=== PATIENT | female | born 1940 | race Caucasian/White ===

== ENCOUNTER → 2016-05-24 | Outpatient (CLI) | payer MEDICARE, OTHER | LOC: LAB 08:35 | PROVIDERS: ATTEND Internal Medicine | DX: N39.0 Urinary tract infection, site not specified (principal) | CPT/HCPCS: 87088 ==

== ENCOUNTER → 2017-01-17 | Outpatient (CLI) | payer MEDICARE, OTHER | LOC: CARD 09:57 | PROVIDERS: ATTEND Internal Medicine | DX: I25.10 Atherosclerotic heart disease of native coronary artery without angina pectoris (principal); R06.09 Other forms of dyspnea; R60.9 Edema, unspecified | CPT/HCPCS: 93306 ==

== ENCOUNTER → 2019-08-12 | Outpatient (CLI) | payer MEDICARE ==
[~2019-08-12] VITALS: Ht 160 cm; Wt 70.0 kg
[~2019-08-12] MED LIST: CATHETER FLUSH 10 ML SYR IV PRN; REGADENOSON 0.4 MG/5 ML SYR (LEXISCAN) IV ONE
[2019-08-12 08:55] VITALS: BP 157/75
[2019-08-12 09:02] VITALS: BP 148/83
--- NOTE | 2019-08-12 15:01 | Cardiology Stress Test Report ---
Stress Test Report Type of NM Stress Test: Test Type: LEXISCAN 0.4MG/5ML Date of Procedure/Referring: Date of Procedure: Aug 12, 2019 PCP Tristian Kong MD Admitting Physician Jovan Francisco MD Indications: CAD, shortness of breath. Baseline Heart Rate: 71 Baseline Blood Pressure: Blood Pressure Systolic: 148 Blood Pressure Diastolic: 83 Baseline EKG: Baseline EKG: sinus rhythm Summary & Conclusion: Summary: The patient was brought to the stress lab after informed consent was taken. Stress test was performed according to the Lexiscan protocol. 0.4 mg of IV Lexiscan was given. Low-grade exercise was performed. Baseline EKG showed sinus rhythm at 71 BPM, blood pressure 157/75 mmHg. Maximum heart rate of 90 BPM and blood pressure 141/67 mmHg. Patient did not have any chest pain, arrhythmias or ST segment changes during the stress test. 10.03 mCi of Myoview were given for rest imaging and 32.8 mCi of Myoview given for stress imaging. Transient ischemic dilatation score 0.93, EF 76 percent. Normal wall motion. Normal myocardial perfusion imaging during rest and stress. Conclusion: Pharmacological stress test was negative for ischemia. Normal LV function with no wall motion abnormalities. Normal myocardial perfusion imaging during rest and stress. Tristian KONG MD Aug 12, 2019 15:01
== END ==
LOC: CARD 07:17
PROVIDERS: ATTEND Internal Medicine Interventional Cardiology
DX: I25.10 Atherosclerotic heart disease of native coronary artery without angina pectoris (principal); E78.5 Hyperlipidemia, unspecified; I11.9 Hypertensive heart disease without heart failure
CPT/HCPCS: 78452; 93017; A9502

== ENCOUNTER → 2019-09-02 | Outpatient (CLI) | payer MEDICARE, OTHER ==
--- NOTE | 2019-09-02 11:24 | Diagnostic Imaging Report ---
INDICATION: Neck stiffness. TIME OF EXAM: 10:59 a.m. FINDINGS: Three views of the cervical spine were obtained. There is straightening and slight reversal of the normal cervical lordotic curvature. Minimal retrolisthesis of C5 on C6 is noted. There is severe degenerative disc disease at the C5-C6 level with disc space narrowing, marginal spurring and endplate sclerosis. Moderate degenerative disc disease at C4-C5 levels also noted. Multilevel facet arthropathy is noted. The prevertebral tissues are normal. Odontoid is intact. No fractures are identified. IMPRESSION: Cervical spondylosis and listhesis. No acute bony abnormality is detected. Dictated by: Dictated on workstation # [id number]
--- NOTE | 2019-09-02 11:27 | Diagnostic Imaging Report ---
INDICATION: Low back pain. TIME OF EXAM: 11:06 a.m. FINDINGS: Three views of the lumbar spine were obtained. Curvature is normal. There is anterolisthesis of L4 on L5. There is significant L4-L5 degenerative disc disease with disc space narrowing and endplate sclerosis. Vertebral body heights are maintained. No acute compression fracture is detected. The remaining disc spaces are fairly well-maintained. IMPRESSION: L4-L5 spondylosis and spondylolisthesis. No acute bony abnormality is detected. Dictated by: Dictated on workstation # [id number]
== END ==
LOC: RAD 10:40
PROVIDERS: ATTEND Nurse Practitioner Family
DX: M47.812 Spondylosis without myelopathy or radiculopathy, cervical region (principal); M47.816 Spondylosis without myelopathy or radiculopathy, lumbar region; M43.12 Spondylolisthesis, cervical region; M43.16 Spondylolisthesis, lumbar region
CPT/HCPCS: 72040; 72100

== ENCOUNTER 2019-09-09 09:30 | Outpatient (RCR) | payer MEDICARE | END 2019-10-19 | disposition home or self-care (01) | PROVIDERS: ATTEND Internal Medicine | DX: M47.812 Spondylosis without myelopathy or radiculopathy, cervical region (principal); R51 Headache ==

== ENCOUNTER 2020-02-22 06:09 | Outpatient (RCR) | payer MEDICARE ==
[~2020-02-22] VITALS: Ht 157.5 cm; Wt 68.5 kg
[2020-02-23] MEDS ORDERED: ESTR0.5T PO (14:16)
[2020-02-23] MEDS ORDERED: LUTE1CAP7 PO (14:33)
[2020-02-23] MEDS ORDERED: OMEG-77 PO (14:33)
[2020-02-23] MEDS ORDERED: GARL10002 PO (14:33)
[2020-02-23] MEDS ORDERED: VITA400C60 PO (14:33)
[2020-02-23] MEDS ORDERED: NAPR-1070 PO (14:33)
[2020-02-23] MEDS ORDERED: OMEP-254 PO (14:33)
[2020-02-23] MEDS ORDERED: UBID1CAP4 PO (14:33)
[2020-02-23] MEDS ORDERED: ACET-2267 PO (14:33)
[2020-02-23] MEDS ORDERED: VITA0.4T7 PO (14:33)
[2020-02-23] MEDS ORDERED: VITA-252 PO (14:33)
[2020-02-23] MEDS ORDERED: GINK120C PO (14:33)
[2020-02-23] MEDS ORDERED: NF-VITD400 PO (14:33)
[2020-02-23] MEDS ORDERED: LORA10TA7 PO (14:33)
[2020-02-23] MEDS ORDERED: GLUC100016 PO (14:33)
== END 2020-02-23 14:39 | disposition home or self-care (01) ==
LOC: PREOP 06:09
PROVIDERS: ATTEND Internal Medicine
DX: Z01.812 Encounter for preprocedural laboratory examination (principal); R13.10 Dysphagia, unspecified; Z20.828 Contact with and (suspected) exposure to other viral communicable diseases
CPT/HCPCS: 87635

== ENCOUNTER 2020-03-15 05:28 | Outpatient (RCR) | payer MEDICARE ==
[~2020-03-15 05:28] MED LIST changes: +ACET-2267 PO; -CATHETER FLUSH 10 ML SYR IV PRN; +ESTR0.5T PO; +GARL10002 PO; +GINK120C PO; +GLUC100016 PO; +LORA10TA7 PO; +LUTE1CAP7 PO; +NAPR-1070 PO; +NF-VITD400 PO; +OMEG-77 PO; +OMEP-254 PO; -REGADENOSON 0.4 MG/5 ML SYR (LEXISCAN) IV ONE; +UBID1CAP4 PO; +VITA-252 PO; +VITA0.4T7 PO; +VITA400C60 PO
== END 2020-03-15 10:04 | disposition home or self-care (01) ==
LOC: PREOP 05:28
PROVIDERS: ATTEND Internal Medicine
DX: Z01.812 Encounter for preprocedural laboratory examination (principal); R13.10 Dysphagia, unspecified; Z20.822 Contact with and (suspected) exposure to COVID-19
CPT/HCPCS: 87635

== ENCOUNTER 2020-03-17 07:00 | Day surgery (SDC) | payer MEDICARE ==
--- NOTE | 2020-02-23 10:13 | HISTORY AND PHYSICAL ---
DATE OF SERVICE: EGD HISTORY AND PHYSICAL DATE OF ADMISSION: HISTORY OF PRESENT ILLNESS: The patient stick is a 79-year-old white female, who reports roughly a year history of dysphagia to solids. It has gotten worse over the past two months and she had one episode of regurgitation around the , when she was eating bread. She had epigastric discomfort with that and had to regurgitate food, was unable to keep liquids down and after 24 hours, was keeping some solids down. She denies any weight gain, but two weeks ago, she did have an episode in the evening after dinner, where she had left precordial chest pain that radiated into the left arm. She denied any problems with increased shortness of breath, diaphoresis or nausea with the pain. She went to bed and the following morning, was feeling better while she reports dyspnea with exertion that has been stable and no different after her episode of chest pain. She does have a history of coronary artery disease with stent placement for single vessel disease involving the LAD in 2002. She has significant osteoarthritis of the knees. She is not on anything other than some occasional Tylenol. She has a history of reflux and takes 20 mg of omeprazole daily, currently is off of aspirin. She denies weight loss, melena or bright red blood per rectum or abdominal distention. PHYSICAL EXAMINATION: GENERAL: Reveals a white female, who did not appear to be in acute distress. VITAL SIGNS: Blood pressure 130/70, heart rate 70 and regular. O2 saturation is 98% on room air. HEENT: Oral cavity clear, no erythema noted. CHEST: Clear to auscultation. CARDIOVASCULAR: Reveals a regular rate and rhythm without murmur, S3 or S4. ABDOMEN: Soft, supple. Mild epigastric discomfort to palpation is noted without rebound, guarding, mass or organomegaly. EXTREMITIES: Reveal no cyanosis, clubbing or edema. ASSESSMENT AND PLAN: 1. Dysphagia with some intermittent odynophagia and history of reflux. The patient is to continue to avoid aspirin and nonsteroidal medication and will be set up for an EGD evaluation with possible dilatation to follow. 2. Chest discomfort with history of coronary artery disease. No ongoing anginal symptoms. I suspect may be reflux related. However, she was told to discuss this with her sales development director, Dr. Butterfield at their appointment later this week. I will see her back in four weeks for followup. Job ID: [id number] DocumentID: [id number] Dictated Date: 02/23/2020 09:49:04 Chief Passenger Ship Steward/Stewardess Date: 02/23/2020 10:12:37 Dictated By: JOEY WORLEY MD
[~2020-03-17] VITALS: Ht 162.6 cm; Wt 68.5 kg
[2020-03-17] MEDS ORDERED: LACTATED RINGERS 1,000 ML IV STA (07:09)
[2020-03-17] MEDS ORDERED: PROPOFOL INJECTION 50 ML IV ONE (07:11)
[2020-03-17] MEDS ORDERED: LIDOCAINE JELLY 2% 6 ML SYRINGE MM PRN (07:15)
[2020-03-17] MEDS ORDERED: HURRICAINE EXT TUBE (BENZOCAINE) XX PRN (07:15)
[2020-03-17] MEDS ORDERED: LACTATED RINGERS 1,000 ML IV ONE (07:19)
[2020-03-17 07:38] VITALS: BP 149/84
[2020-03-17] MEDS ORDERED: ASPI-1238 PO (07:49)
[2020-03-17] MEDS ORDERED: HURRICAINE EXT TUBE (BENZOCAINE) ONE (07:56)
[2020-03-17] MEDS ORDERED: LIDOCAINE JELLY 2% 6 ML SYRINGE ONE (07:56)
[2020-03-17 08:15] VITALS: BP 135/63
[2020-03-17 08:20] VITALS: BP 114/59
--- NOTE | 2020-03-17 08:21 | Pre-Op Note & Conscious Sedat ---
Pre-Operative Progress Note H&P Reviewed The H&P was reviewed, patient examined and no changes noted. Date H&P Reviewed: Mar 17, 2020 Time H&P Reviewed: 07:45 Conscious Sedation Pre-Proced ASA Score 2 For ASA 3 and 4: Consider anesthesia and medical clearance. Also, for patients with a history of failed moderate sedation consider anesthesia. Airway Lungs Heart ASA score ASA 1: a normal healthy patient ASA 2: a patient with a mild systemic disease (mid diabetes, controlled hypertension, obesity ASA 3: a patient with a severe systemic disease that limits activity (angina, COPD, prior Myocardial infarction) ASA 4: a patient with an incapacitating disease that is a constant threat to life (CHF, renal failure) ASA 5: a moribund patient not expected to survive 24 hrs. (ruptured aneurysm) ASA 6: a declared brain- patient whose organs are being harvested. For emergent operations, add the letter E after the classification Mallampati Classification Grade 2 Sedation Plan Analgesia, Amnesia, Plan communicated to team members, Discussed options with patient/fam, Discussed risks with patient/fam The patient is an appropriate candidate to undergo the planned procedure, sedation, and anesthesia. The patient immediately re-assessed prior to indication. JOEY WORLEY MD Mar 17, 2020 08:20
[2020-03-17 08:25] VITALS: BP 125/64
[2020-03-17 08:45] VITALS: BP 125/64
[2020-03-17 09:21] VITALS: BP 145/68
--- NOTE | 2020-03-17 14:54 | Anesthesia-General Post-Op ---
MAC Patient Condition Mental Status/LOC: Same as Preop Cardiovascular: Satisfactory Nausea/Vomiting: Absent Respiratory: Satisfactory Pain: Controlled Complications: Absent Post Op Complications Complications None Follow Up Care/Instructions Patient Instructions None needed. Anesthesiology Discharge Order Discharge Order Patient is doing well, no complaints, stable vital signs, no apparent adverse anesthesia problems. No complications reported per nursing. CECE MILAN CRNA Mar 17, 2020 14:54
--- NOTE | 2020-03-17 15:47 | OPERATIVE REPORT ---
DATE OF SERVICE: EGD SUMMARY INDICATION FOR THE PROCEDURE: Dysphagia. DESCRIPTION OF PROCEDURE: The patient was placed in left lateral decubitus position. The upper endoscope was inserted in the oral cavity and under direct visualization, esophagus was intubated. The endoscope was passed down the esophagus through the stomach and second portion of the duodenum. Careful inspection was made as the endoscope was withdrawn. The patient tolerated the procedure well. FINDINGS: The posterior pharynx, epiglottis, arytenoid aperture and true and false vocal folds were unremarkable to visual inspection. Proximal and mid esophagus were unremarkable. A small hiatal hernia was present with evidence of lower esophageal sphincter stricturing about 1.5 cm in diameter without evidence for ulceration or erythema. No evidence to suggest Carmona's change was noted. It had completely benign appearance and photograph was obtained. The cardia, fundus, antrum, pylorus, pyloric channel, duodenal bulb and second portion of duodenum were unremarkable. Using the 18 to 20 mm balloon dilator was passed across the stricture and dilated to 6 atmospheres/20 mm in size, small amount of blood was noted post-stricturoplasty with no other abnormalities being noted and no reports of pain noted by the patient. 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 The patient will continue proton pump inhibitor therapy with careful attention to mastication and drinking fluids with meals. Did discuss that recurrence at some point in the future was likely and that if she is having recurrence of dysphagia to return for repeat evaluation for EGD with dilatation. Job ID: [id number] DocumentID: [id number] Dictated Date: 03/17/2020 11:47:03 Airport Guide Date: 03/17/2020 15:47:14 Dictated By: JOEY WORLEY MD [facility]
== END 2020-03-17 09:25 | disposition home or self-care (01) ==
LOC: ENDO 07:00
PROVIDERS: ATTEND Internal Medicine
DX: R13.10 Dysphagia, unspecified (principal); K44.9 Diaphragmatic hernia without obstruction or gangrene; Z88.5 Allergy status to narcotic agent; Z95.5 Presence of coronary angioplasty implant and graft

== ENCOUNTER → 2020-07-07 | Outpatient (CLI) | payer MEDICARE ==
[~2020-07-07] MED LIST changes: +ASPI-1238 PO
== END ==
LOC: LABNPT 06:50
PROVIDERS: ATTEND Orthopaedic Surgery
DX: Z01.812 Encounter for preprocedural laboratory examination (principal); Z20.822 Contact with and (suspected) exposure to COVID-19
CPT/HCPCS: 87635

== ENCOUNTER 2020-07-27 09:49 | Emergency (ER) | payer MEDICARE ==
[~2020-07-27] VITALS: Ht 157.4 cm; Wt 70.4 kg
--- NOTE | 2020-07-27 10:50 | ED Lower Extremity ---
General Chief Complaint: Lower Extremity Stated Complaint: POSSIBLE BLOOD CLOT Nursing Triage Note: TO ED PER W/C WITH C/O R KNEE LEG PAIN HAS TOTAL KNEE ON JULY 10 GOT CELLULITIS IN KNEE WAS ON ANTIBIOTIC REPORTS REDNESS AT SITE BETTER. BUT HAVING PAIN IN CALF OF LEG BRUSING NOTED. IN AREA. Nursing Sepsis Screen: No Definite Risk Source: patient Exam Limitations: no limitations History of Present Illness Date Seen by Provider: Jul 27, 2020 Time Seen by Provider: 10:32 Initial Comments Patient to the ER by private conveyance with chief complaint [address] Grey did a right knee replacement surgery. Since that time she did have cellulitis and was treated with antibiotics outpatient. She stopped her last dose 3 days ago. She saw her surgeon 2 days ago. She is having some residual redness and swelling and heat around her left knee incision however her concern is she is having pain and tenderness going up her left posterior calf and feels tight. She is worried about a blood clot. She called her surgeon's office and the nurse encouraged her to come out to the ER to have it checked out. She is not on blood thinners. Does not have a history of blood clots. Allergies and Home Medications Allergies Coded Allergies: morphine (Unverified Allergy, Unknown, 01/18/15) Home Medications Acetaminophen 500 Mg Tablet, 500 MG PO BID, (Reported) Estradiol 0.5 Mg Tablet, 0.5 MG PO DAILY, (Reported) Garlic 1,000 Mg Capsule, 1,000 MG PO DAILY, (Reported) Ginkgo Biloba Extract 120 Mg Capsule, 120 MG PO DAILY, (Reported) Glucosamine Sulfate 2Kcl 1,000 Mg Tablet, 1,000 MG PO DAILY, (Reported) Loratadine 10 Mg Tablet, 10 MG PO PRN, (Reported) Lutein/Zeaxanthin 1 Each Capsule, 1 EACH PO DAILY, (Reported) [place]-3 Fatty Acids/Fish Oil 1 Each Capsule, 1 EACH PO BID, (Reported) Omeprazole Magnesium 20 Mg Capsule.dr, 20 MG PO DAILY, (Reported) Ubidecarenone/Red Yeast Rice 1 Each Capsule, 1 EACH PO DAILY, (Reported) Vitamin B Complex/Folic Acid 0.4 Mg Tablet, 0.4 MG PO DAILY, (Reported) Vitamin C/Biotin 1 Each Tab.chew, 1 EACH PO DAILY, (Reported) Vitamin D 10 Mcg Tablet, 2,000 MCG PO BID, (Reported) Vitamin E Acetate 400 Unit Capsule, 400 UNIT PO DAILY, (Reported) Patient Home Medication List Home Medication List Reviewed: Yes Review of Systems Constitutional: No chills, No diaphoresis EENTM: No ear discharge, No ear pain Respiratory: No cough, No short of breath Cardiovascular: No chest pain, No edema Gastrointestinal: No abdominal pain, No nausea, No vomiting Genitourinary: No discharge, No dysuria Musculoskeletal: see HPI; No back pain; joint pain, muscle pain, muscle stiffness All Other Systems Reviewed Negative Unless Noted: Yes Past [id number]-[id number] Hx Patient Social History Alcohol Use: Denies Use Number of Drinks Today: Alcohol Beverage of Choice: Wine 2nd Hand Smoke Exposure: No Recent Infectious Disease Expo: No Recent Hopitalizations: No Immunizations Up To Date Tetanus Booster (TDap): Unknown Seasonal Allergies Seasonal Allergies: No Past Medical History Surgeries: Yes (HEART STENTS) Eye Surgery, Hysterectomy, Orthopedic Respiratory: No Currently Using CPAP: No Currently Using BIPAP: No Cardiac: No Neurological: No Female Reproductive Disorders: Denies CEMENT PATCHER History: Hysterectomy Sexually Transmitted Disease: No HIV/AIDS: No Genitourinary: No Gastrointestinal: No Musculoskeletal: No Endocrine: No HEENT: No Cataract Loss of Vision: Bilateral Hearing Impairment: Bilateral Hearing Aide Cancer: No Psychosocial: No Integumentary: No Blood Disorders: No Physical Exam Vital Signs Vital Signs - First Documented 07/27/20 10:13 Temp 36.6 Pulse 105 Resp 18 B/P (MAP) 133/67 (89) Pulse Ox 97 O2 Delivery Room Air Capillary Refill : Less Than 3 Seconds Height, Weight, BMI Height: 5'4.00" Weight: 154lbs. oz. 69.323318qm; 28.00 BMI Method: General Appearance: WD/WN, no apparent distress HEENT: PERRL/EOMI, pharynx normal Neck: full range of motion, normal inspection Cardiovascular: normal peripheral pulses, regular rate, rhythm Respiratory: no respiratory distress, no accessory muscle use Knees: left knee non-tender, left knee normal inspection, left knee normal range of motion, left knee no evidence of injury; right knee pain, right knee soft tissue tenderness, right knee swelling Ankles: bilateral ankle non-tender, bilateral ankle normal inspection, bilateral ankle normal range of motion, bilateral ankle no evidence of injury Neurologic/Psychiatric: alert, normal mood/affect, oriented x 3 Skin: normal color, warm/dry Progress/Results/Core Measures Results/Orders My Orders Orders - ONEIL VALDOVINOS Us Venous Lower Ext Rt (07/27/20 10:46) Vital Signs/I&O 07/27/20 10:13 Temp 36.6 Pulse 105 Resp 18 B/P (MAP) 133/67 (89) Pulse Ox 97 O2 Delivery Room Air Blood Pressure Mean: 89 Progress Progress Note : Time: 10:49 Progress Note Plan to cover her with an ultrasound of her right lower extremity Doppler. If this is negative would be reasonable also to start her on a second course of Keflex for what looks to be some residual cellulitis in the soft tissue surrounding her incision. There is not seem to be any fluctuance or evidence of abscess. Diagnostic Imaging Diagonstic Imaging: Ultrasound Plain Films/CT/US/NM/MRI: leg (Right lower extremity) Comments NAME: [facility]ERRY WISDOM [facility] REC#: [id number] PT STATUS: REG ER : 1940 PHYSICIAN: ONEIL VALDOVINOS MD ADMIT DATE: 07/27/20/ER Draft Date of Exam:07/27/20 US VENOUS LOWER EXT RT PROCEDURE: US right lower extremity venous. TECHNIQUE: Multiple real-time grayscale images were obtained over the right lower extremity in various projections. Additional spectral analysis and color Doppler duplex images were also obtained. INDICATION: Recent right knee replacement. FINDINGS: There is no evidence of a right lower extremity DVT. The right lower extremity venous system demonstrates normal compressibility with normal response to augmentation and Valsalva. No soft tissue fluid collections are identified. IMPRESSION: No evidence of right lower extremity DVT. Dictated on workstation # [id number] Dict: 07/27/20 1212 Trans: 07/27/20 1216 [facility] [id number] Interpreted by: AUTUMN ARGUETA MD Electronically signed by: Reviewed: Reviewed by Me Departure Impression Primary Impression: Cellulitis of right lower extremity without foot Disposition: 01 HOME, SELF-CARE Condition: Stable Departure-Patient Inst. Decision time for Depature: 12:27 Referrals: JOEY WORLEY MD (PCP/Family) Primary Care Physician Patient Instructions: Cellulitis (Skin Infection), Adult ED Add. Discharge Instructions: Keflex 1 capsule 4 times a day for the next week. If you are not seeing improvement at the end of that week then you need to follow-up with your surgeon for reexamination. If you are having redness going all the way up your leg, chest pain, shortness of air or other worrisome symptoms then please return to the ER. carding supervisor a bottle of probiotics and take 1 capsule twice a day while you are on antibiotics to prevent the untoward side effects of antibiotics. All discharge instructions reviewed with patient and/or family. Voiced understanding. Scripts Cephalexin (Cephalexin) 500 Mg Tablet 500 MG PO QID for 7 Days, #28 TAB 0 Refills Prov: ONEIL VALDOVINOS 07/27/20 ONEIL VALDOVINOS Jul 27, 2020 10:50
--- NOTE | 2020-07-27 12:16 | Diagnostic Imaging Report ---
PROCEDURE: US right lower extremity venous. TECHNIQUE: Multiple real-time grayscale images were obtained over the right lower extremity in various projections. Additional spectral analysis and color Doppler duplex images were also obtained. INDICATION: Recent right knee replacement. FINDINGS: No prior studies available for comparison. There is no evidence of a right lower extremity DVT. The right lower extremity venous system demonstrates normal compressibility with normal response to augmentation and Valsalva. No soft tissue fluid collections are identified. IMPRESSION: No evidence of right lower extremity DVT. Dictated by: Dictated on workstation # [id number]
[2020-07-27] MEDS ORDERED: CEPH500T PO (12:35)
[2020-07-27 12:44] VITALS: BP 124/64
== END 2020-07-27 12:44 | disposition home or self-care (01) ==
LOC: EDUNIT# 09:49 → ER 09:50
DX: L03.115 Cellulitis of right lower limb (principal); Z96.651 Presence of right artificial knee joint

== ENCOUNTER → 2021-05-21 | Outpatient (CLI) | payer MEDICARE ==
[~2021-05-21] MED LIST changes: +CEPH500T PO
--- NOTE | 2021-05-21 16:00 | Diagnostic Imaging Report ---
INDICATION: Aspiration, cough PA and lateral chest Heart size and pulmonary vascularity are normal. Lungs are clear. There are no effusions or pneumothoraces. IMPRESSION: No acute abnormalities in the chest. Dictated by: Dictated on workstation # [id number]
== END ==
LOC: RAD 13:35
PROVIDERS: ATTEND Nurse Practitioner Family
DX: R05.9 Cough, unspecified (principal)
CPT/HCPCS: 71046

== ENCOUNTER → 2022-11-06 | Outpatient (CLI) | payer MEDICARE ==
--- NOTE | 2022-11-06 18:22 | Diagnostic Imaging Report ---
INDICATION: R ROTATOR CUFF TENDONITIS PAST YR FAILED P.T. COMPARISON: None. FINDINGS: Three views of the right shoulder were obtained. There is no fracture, dislocation, or other acute bony abnormality identified. The soft tissues appear unremarkable. No radiopaque foreign body is identified. The visualized portions of the right lung are clear. IMPRESSION: No acute fractures or dislocations of the right shoulder. Dictated by: Dictated on workstation # [id number]
== END ==
LOC: RAD 13:22
PROVIDERS: ATTEND Internal Medicine
DX: M75.81 Other shoulder lesions, right shoulder (principal)
CPT/HCPCS: 73030

== ENCOUNTER → 2022-12-03 | Outpatient (CLI) | payer MEDICARE ==
--- NOTE | 2022-12-03 12:37 | Diagnostic Imaging Report ---
EXAMINATION: Magnetic resonance imaging of the right shoulder without contrast. DATE: December 03, 2022. COMPARISON: Right shoulder radiographs November 06, 2022. HISTORY: 82-year-old female, right shoulder pain. TECHNIQUE: Magnetic Resonance Imaging sequences were performed of the shoulder without contrast. FINDINGS: ROTATOR CUFF, LIGAMENTS, TENDONS, AND MUSCLES: There is supraspinatus tendinopathy. There is a 4 mm wide full-thickness or near full-thickness tear involving the anterior leading edge of the supraspinatus tendon measuring 4 mm in medial to lateral extent. Infraspinatus and teres minor tendons are intact. There is subscapularis tendinopathy. There is low-level edema in the subscapularis, infraspinatus, teres minor muscles. There is no prominent fatty muscle atrophy. LONG HEAD OF BICEPS: The biceps labral attachment and long head of the biceps tendon is intact. The long head of the biceps tendon is normally positioned within the bicipital groove. GLENOHUMERAL JOINT: The humeral head is mildly superiorly subluxed. There is no discretely identified labral tear. There is no identified paralabral cyst. There are broad areas of full-thickness glenohumeral cartilage loss. There is a small glenohumeral joint effusion. There is no prominent synovitis or identified intra-articular body. ACROMIOCLAVICULAR JOINT: The acromioclavicular joint is normally aligned. The coracoclavicular and coracoacromial ligaments are intact. There are mild acromioclavicular degenerative changes with osteophytes extending approximately 2 mm below the expected joint margin. BONE: There is no os acromiale. There is no Hill-Sachs deformity. There is no acute fracture, bone contusion, or evidence of osteonecrosis. There is prominent edema-like signal adjacent to the glenohumeral joint which is likely arthritic related. BURSAE AND SOFT TISSUES: The bursae and soft tissue surrounding the shoulder are unremarkable. IMPRESSION: 1. 4 mm wide full-thickness or near full-thickness tear involving the anterior leading edge of the supraspinatus tendon measuring 4 mm in medial to lateral extent. Additional supraspinatus tendinopathy. 2. Low level edema in the subscapularis, infraspinatus, and teres minor muscles which may reflect low-grade muscle strains. No fatty muscle atrophy. 3. Severe glenohumeral arthritis without discrete labral tear. Small glenohumeral joint effusion. 4. Mild acromioclavicular degenerative changes with 2 mm undersurface osteophytes. 5. No acute fracture, bone contusion, or evidence of osteonecrosis. Dictated by: Dictated on workstation # [id number]
== END ==
LOC: RAD 09:31
DX: S46.011A Strain of muscle(s) and tendon(s) of the rotator cuff of right shoulder, initial encounter (principal); M19.011 Primary osteoarthritis, right shoulder
CPT/HCPCS: 73221